=== PATIENT | male | born 1965 | race Caucasian/White ===

== ENCOUNTER → 2017-11-07 | Outpatient (CLI) | payer BC ==
[~2017-11-07] MED LIST: ALLEGRA ALLERG180 MG PO; ASPIRIN 81MG TA81 MG PO; BUPROPION XL300 MG PO; FLOMAX0.4 MG PO; FLONASE 50 MCG16 GM; HYDROCHLOROTHIA25 M1 PO; MOBIC15 MG PO; NORCO 325 MG-101 TAB PO; SINGULAIR10 MG PO; VENTOLIN H0.09 MG/AC IH
--- NOTE | 2017-11-08 08:56 | RADIOLOGY REPORT PS360 ---
CT CHEST W/ CONTRAST INDICATION: LUNG NODULE ORDERING PHYSICIAN: Onel Georges MD PATIENT AGE: 52 years COMPARISON: None TECHNIQUE: Axial images are obtained with contrast. Sagittal and coronal reformatted images are reviewed as well. FINDINGS: Scattered small lymph nodes are present within the mediastinum some of which are partially calcified and not significantly changed. No evidence of aortic aneurysm or dissection. No central pulmonary embolus apparent. Normal heart size. No obvious pericardial effusion. There is mild biapical fibrotic change. There are mild centrilobular emphysematous changes with obstructive chronic bronchitis. There is a calcified granuloma in the left upper lobe as before. Calcified granulomas are present in both lower lobes. Previously noted groundglass opacity in the right middle lobe has shown improvement. A noncalcified nodule in the right lung base anteriorly is unchanged measuring 5 mm. Groundglass opacities in the right lower lobe has also improved. No new nodules are evident. No effusions. No acute bony anomalies. IMPRESSION: 1. Improvement in the right middle lobe and right lower lobe groundglass opacities consistent with improvement in pneumonia. 2. Stable bilateral pulmonary nodules most of which are calcified as well as stable small mediastinal lymph nodes
== END ==
LOC: RAD 13:56
DX: R91.1 Solitary pulmonary nodule (principal)
CPT/HCPCS: Q9967